=== PATIENT | female | born 1955 | race Caucasian/White ===

== ENCOUNTER → 2024-07-11 14:56 | Outpatient (REF) | payer MEDICARE, SELFPAY | LOC: WDC 14:56 | PROVIDERS: ATTENDING PHYSICIAN Nurse Practitioner Adult Health | DX: Z12.39 Encounter for other screening for malignant neoplasm of breast (principal); Z12.31 Encounter for screening mammogram for malignant neoplasm of breast | CPT/HCPCS: 77063; 77067 ==

== ENCOUNTER 2024-12-13 23:23 | Observation (INO) | payer MEDICARE, SELFPAY ==
[2024-12-13] VITALS (24 sets, daily range): BP systolic 86–116; BP diastolic 47–96; BMI 29.9
[2024-12-13 17:34] LABS: Hematocrit 29.1 % (37.0-47.0); Hemoglobin 9.1 g/dL (12.0-16.0); Mean Corp Hgb Conc. 31.3 g/dL (33.0-37.0); Mean Corpuscular Volume 93.6 fL (81.0-99.0); Nucleated Red Blood Cells % 0 %; Platelet Count 149 10^3/uL (130-400); Red Cell Dist. Width 14.6 % (11.5-14.5)
[2024-12-13 17:52] LABS: ALT (SGPT) 22 U/L (0-35); AST (SGOT) 17 U/L (14-36); Albumin 3.0 g/dl (3.5-5.0); Alkaline Phosphatase 139 U/L (38-126); Blood Urea Nitrogen 25 mg/dl (7-17); Calcium 8.9 mg/dl (8.4-10.2); Carbon Dioxide 22 mmol/L (22-30); Chloride 106 mmol/L (98-107); Estimated Creatinine Clearance 38 ml/min; Glucose 139 mg/dl (70-99); Potassium 4.1 mmol/L (3.5-5.1); Sodium 133 mmol/L (135-145); Total Protein 5.6 g/dl (6.3-8.2); eGFR 37.03
--- NOTE | 2024-12-13 17:58 | ED.GENMED ---
History of Present Illness
General
Chief Complaint: Dehydration Symptoms
Time Seen by Provider: 12/13/24 17:26
History of Present Illness
History of Present Illness:
69-year-old female presents to the emergency department for evaluation of dizziness and near syncope. She states for the past 4 days she has had intermittent fever and chills as well as 'bone pain'. She denies any cough, chest pain, abdominal
pain, vomiting, or diarrhea. No lower urinary tract voiding symptoms. She was seen at [facility] emergency department 3 days ago for the symptoms, reportedly had a negative COVID and flu and was diagnosed with a viral syndrome. She
was discharged home. She was noted to be hypotensive at her primary care physician's office today and had a near syncopal event when trying to stand. She did take her amlodipine, losartan, and metoprolol today, states that she frequently has low
blood pressure episodes at home as low as 80/40 but has not made any medication adjustments recently.
Review of Systems
Review of Systems
Allergies reviewed?: Yes
All Other Systems: ROS reviewed and negative except as documented in HPI and ROS
Phy Exam
Physical Exam
Physical Exam:
GEN: Well appearing, NAD, WDWN
HEENT: Oral mucosa dry, no scleral icterus
Cardiac: Regular rate and rhythm, no murmur
Lung: No respiratory distress, no tachypnea, lungs clear to auscultation bilaterally
Abdomen: Soft, nontender
MSK: No gross deformity or injuries
Skin: Good color, no pallor or jaundice, no rashes
Neuro: AO x3, moves all extremities freely
Psych: Calm, cooperative
Course
Orders/Labs/Results
Orders:
Orders
12/13/24 17:20
ECG [Electrocardiogram (*1)] Urgent
Reason for Study: Vertigo / Dizzy
EKG- Treatment ONCE
12/13/24 17:21
CMP [Comprehensive Metabolic Panel] Urgent
Complete Blood Count/With Diff Urgent
12/13/24 17:57
0.9% Sodium Chloride 1000 ml [Nss] 1,000 ml IV BOLUS
12/13/24 17:58
0.9% Sodium Chloride 1000 ml [Nss] 1,000 ml IV BOLUS
12/13/24 18:42
Urinalysis Reflex To Culture Urgent
Date Specimen was Collected: 12/13/24
Time Specimen was Collected: 18:34
12/13/24 23:24
Admit/Transfer Patient As Directed
Co-Sign Provider:
Level of Care: Observation services
Assign to:: Telemetry
Physician / Group: Tim Glover
Diagnosis: hypotensive, anemia
Reason for Telemetry: Arrhythmia
Date to Stop Telemetry: 12/16/24
Time to Stop Telemetry: 11:00
PRN Pain Medication Management As Directed
May give lesser potent ordered pain med per pt: Yes
preference::
Protocol:: Medication orders for pain may be administered in a
manner that supports deferring to patient preference
when the pt is:
- Requesting an ordered lesser potent pain medication.
Least to most potent pain medications are defined
as: acetaminophen < NSAID < tramadol < opioids
(morphine, oxycodone, hydromorphone).
- Requesting a lesser dose of the same medication IF
ORDERED.
- Requesting a less intrusive route of administration
if both routes are prescribed by the provider (PO <
IV).
12/13/24 23:26
Code Status As Directed
Resuscitation Status: Full Code
12/13/24 23:54
COVID-19 Antigen Urgent
Source: Nasal Swab
12/16/24 11:00
DC Protocol for Telemetry ONCE
Abnormal Lab Results
12/13/24
17:21
RBC 3.11 L 10^6/uL
(4.20-5.40)
Hgb 9.1 L g/dL
(12.0-16.0)
Hct 29.1 L %
(37.0-47.0)
MCHC 31.3 L g/dL
(33.0-37.0)
RDW 14.6 H %
(11.5-14.5)
MPV 12.3 H fL
(7.4-10.4)
Abs Immat Gran (auto) 0.1 H 10^3/uL
(0-0.05)
Absolute Neuts (auto) 8.4 H 10^3/uL
(1.4-6.5)
Absolute Monos (auto) 0.7 H 10^3/uL
(0.1-0.6)
Immature Gran % 0.6 H %
(0-0.5)
Neutrophils % 78.0 H %
(42.2-75.2)
Lymphocytes % 13.3 L %
(20.5-51.1)
Sodium 133 L mmol/L
(135-145)
BUN 25 H mg/dl
(7-17)
Creatinine 1.5 H mg/dL
(0.6-1.0)
Glucose 139 H mg/dl
(70-99)
Alkaline Phosphatase 139 H U/L
(38-126)
Total Protein 5.6 L g/dl
(6.3-8.2)
Albumin 3.0 L g/dl
(3.5-5.0)
12/13/24 17:21
12/13/24 17:21
Vital Signs
Initial and Last Documented VS:
Initial Vital Signs
Temp
97.7 F
12/13/24 17:11
Last Documented Vital Signs
Temp Pulse Resp BP Pulse Ox
98.4 F 65 12 119/65 93
12/14/24 00:07 12/14/24 00:00 12/14/24 00:00 12/14/24 00:00 12/14/24 00:00
MDM/Problems Addressed
MDM/Problems Addressed:
Suspect the cause of the patient's hypotension is multifactorial potentially due to mild hypovolemia coupled with excessive antihypertensive use. Her hemoglobin is noted to be low however this may be hemodilution, compared to 11.3 at [facility]
earlier in the week but the patient is heme-negative stool and no other signs of active bleeding. Her blood pressure was responsive to IV fluid however after 2 L of crystalloid she remained modestly hypotensive. Will admit for observation and
adjustment of blood pressure medications
Comment
Comment:
EKG independently interpreted by me shows normal sinus rhythm at a rate of [address] changes concerning for ischemia
*Pulse Oximetry
SaO2: 96
Oxygen Mode of Delivery: Room air
Patient hypoxic: no
*Critical Care Note
Total Time (30-74mins, 75-104mins- exclusive of procedures): Not Applicable
Update Note
Update Note:
Stool hemoccult negative. Hgb now 9.1, down from 11.3 at [facility] earlier this week.
ED Attending Note
-
Portions of this chart may have been created with voice recognition software.� Occasional wrong word or��sound alike� substitutions may have occurred due to the inherent limitations of voice recognition software.
Discharge Plan
Departure
Patient Disposition: Admit
Date of Disposition: 12/13/24
Time of Disposition: 22:22
Admit to: Med/Surg
Presentation/result/management discussed w/ accepting MD/DO: Hospitalist
Discharge Problem:
Acute hypotension, Near syncope
Prescriptions:
No Action
allopurinol 100 mg Tablet
100 mg PO DAILY
morphine 30 mg Tablet
30 mg PO BID
coenzyme Q10 [Co Q-10] 100 mg Capsule
100 mg PO DAILY
Lactobacillus acidophilus 500 million cell Tablet
500 mmu cells PO PRN PRN (Reason: supplement)
cholecalciferol (vitamin D3) [Vitamin D3] 50 mcg (2,000 unit) Tablet
25 mcg PO DAILY
mecobalamin (vitamin B12) 1,000 mcg Tablet,Disintegrating
1,000 mcg SUBLINGUAL DAILY
Prevagen Supplement
1 cap PO DAILY
oxycodone 15 mg Tablet
15 mg PO Q4H PRN (Reason: shoulder/back pain)
amlodipine 5 mg tablet
2.5 mg PO DAILY
multivitamin [Multi-Vitamin] Tablet
1 tab PO DAILY
furosemide 40 mg Tablet
40 mg PO MOTH
Rx Instructions:
2x per week, patient unsure of days
fluticasone propion-salmeterol [Advair Diskus] 250-50 mcg/dose Blister With Device
1 inh INHALATION BID
acetaminophen 325 mg Tablet
325 mg PO Q4HPRN PRN (Reason: pain/fever )
famotidine 20 mg Tablet
20 mg PO DAILY
albuterol sulfate 90 mcg/actuation Hfa Aerosol Inhaler
2 puff INHALATION Q4HPRN PRN (Reason: SOB/Wheezing)
albuterol sulfate [ProAir HFA] 90 mcg/actuation Hfa Aerosol Inhaler
2 puff INHALATION Q4D
paroxetine HCl 40 mg Tablet
40 mg PO DAILY
ondansetron 4 mg Tablet,Disintegrating
4 mg PO TIDPRN PRN (Reason: nausea/vomiting)
metoprolol tartrate 25 mg Tablet
25 mg PO BID
Referrals:
NONE,* [Active, Internal Medicine]
Interventions
Interventions:
*Risk Screen - Suicide Last Done: 12/13/24 17:11
*General Assessment Last Done: 12/13/24 17:11
*Neglect/Abuse Screening Last Done: 12/13/24 17:19
*ED- Fall Risk Assessment Last Done: 12/13/24 17:19
*ED COVID-19 Vaccine History Last Done: 12/13/24 17:19
ED- Cardiac Assessment Last Done: 12/14/24 00:04
ED- Neurological Assessment Last Done: 12/14/24 00:04
ED- Pulmonary Assessment Last Done: 12/14/24 00:04
Discharge Date and Time
Print Language: HUNGARIAN
[2024-12-13] MEDS: NSS 1000 IV ×2 (18:06)
[2024-12-13 18:56] LABS: Urine Character Clear (Clear)
--- NOTE | 2024-12-13 22:29 | HPS.HSE ---
Addendum entered and electronically signed by Tim Glover DO 12/13/24 23:57:
Patient seen and examined independently. Agree with findings and plan as set forth by HOLA Quach.
Patient is a 69y F with PMH significant for PA-Fib, hypertension and DM-II who presents to ED for evaluation after fall at her PCP office today. Patient was seen at [facility] ED about 3 days ago for fevers / chills, headache and malaise. She
was diagnosed with viral syndrome and discharged. She states that these symptoms have since improved. Patient was seen by her PCP today in follow-up. When leaving the office, patient stood and her legs 'gave out'. She fell to floor. She did not
strike her head and she did not pass out. Her BP was noted to be low at the PCP office and patient was sent to the ED for further evaluation.
At the time of my examination, patient is resting comfortably and has no complaints. She has ambulated to the bathroom and back without lightheadedness, dizziness, etc.
Ass:
Fall
Hypotension
Benign Hypertension
DM-II
Paroxysmal Atrial Fibrillation
CKD III
Plan:
Observe overnight for further evaluation and treatment.
BP improved in the ED after IVF and patient appears asymptomatic at present.
Continue to hold BP medications.
Monitor for continued improvement / stability in BP.
Follow labs / anemia. Check iron studies, etc.
PT eval in the AM.
Original Note:
Family Physician
-
Family Physician: Jackie Burnett
Chief Complaint
-
hypotension
History of Present Illness
Patient is a 69-year-old female with past medical history significant for hypertension, hyperlipidemia, paroxysmal atrial fibrillation, chronic HFpEF and DM - II who presented to [facility] ED for evaluation of hypotension. Patient reports being at
primary care providers office this afternoon for follow up for [facility] ED visit for fever, chills, headache and severe back pain with diagnosis of viral syndrome and discharged home 3 days ago. When she was leaving she reports becoming dizzy and
fell. Patient reports being complaint with medications, she states that her separates them into a weekly container and she takes them daily. She currently denies any dizziness, shortness of breath or nausea.
Medical History
Past Medical History
Past Medical History: Reports Other
Additional Past Medical History:
hypertension
hyperlipidemia
paroxysmal atrial fibrillation
chronic HFpEF
DM - II
gout
iron deficiency anemia
CKD IIIb
STEPHENIE
anxiety/depression
Hx GI bleed
Past Surgical History: Reports Other
Additional Past Surgical History:
Ischemic bowel disease-R hemicolectomy and transverse colon resection
Osteoarthritis-bilateral knee replacements (2011)
spinal fusion
Menorrhagia/Fibroids-Hysterectomy
section(1983)
Bilateral tubal ligation(1988)
hemorrhage-myomectomy
angulated transverse subtrochanteric fracture of the R proximal femur s/p ORIF (2016)- Dr. Devlin
Breast lump-BX Left Breast/benign intraductal papilloma (2005)
Adhesions-exploratory laparotomy (1999)
Back pain-L4/L5 Right Laminectomy (2010)
IR Fistula/abscess of liver 10/28/21
diverticulitis
Social History
Tobacco: Non-smoker
Alcohol: None
Drug: None and Other
Personal:
Living: With Family
Family History
Family History: Not pertinent
Allergies / Home Medications
Allergies reflects when Allergies were last updated in emere.
Home Medications with original date entered in emere
Allergy/Medication List:
Allergies
Allergy/AdvReac Type Severity Reaction Status Date / Time
Cephalosporins Allergy Rash Verified 12/13/24 17:15
penicillin G Allergy Anaphylaxis Verified 12/13/24 17:15
Penicillins Allergy Anaphylaxis Verified 12/13/24 17:15
Home Medications
Lactobacillus acidophilus 500 million cell tablet 500 mmu cells PO PRN PRN supplement 11/02/22
Prevagen Supplement 1 cap PO DAILY 11/02/22
allopurinol 100 mg tablet 100 mg PO DAILY 11/02/22
cholecalciferol (vitamin D3) 50 mcg (2,000 unit) tablet (Vitamin D3) 25 mcg PO DAILY 11/02/22
coenzyme Q10 100 mg capsule (Co Q-10) 100 mg PO DAILY 11/02/22
mecobalamin (vitamin B12) 1,000 mcg disintegrating tablet,sublingual 1,000 mcg sublingual DAILY 11/02/22
morphine 30 mg immediate release tablet 30 mg PO BID 11/02/22
oxycodone 15 mg tablet 15 mg PO Q4H PRN shoulder/back pain 11/16/22
acetaminophen 325 mg tablet 325 mg PO Q4HPRN PRN pain/fever 12/13/24
albuterol sulfate 90 mcg/actuation aerosol inhaler 2 puff inhalation Q4D SOB 12/13/24
albuterol sulfate 90 mcg/actuation aerosol inhaler 2 puff inhalation Q4HPRN PRN SOB/Wheezing 12/13/24
amlodipine 5 mg tablet 2.5 mg PO DAILY 12/13/24
famotidine 20 mg tablet 20 mg PO DAILY 12/13/24
fluticasone 250 mcg-salmeterol 50 mcg/dose blistr powdr for inhalation (Advair Diskus) 1 inh inhalation BID 12/13/24
furosemide 40 mg tablet 40 mg PO MOTH 12/13/24
metoprolol tartrate 25 mg tablet 25 mg PO BID 12/13/24
multivitamin 1 tab PO DAILY 12/13/24
ondansetron 4 mg disintegrating tablet 4 mg PO TIDPRN PRN nausea/vomiting 12/13/24
paroxetine HCl 40 mg tablet 40 mg PO DAILY 12/13/24
Review of Systems
-
History Source: Patient
Constitutional: Reports Fatigue
EENT: Reports No Symptoms
Respiratory: Reports No Symptoms
Cardiac: Reports No Symptoms
Abdomen/GI: Reports No Symptoms
: Reports No Symptoms
Musculoskeletal: Reports No Symptoms
Skin: Reports No Symptoms
Neurological: Reports Dizzy and Other (near syncope )
Endocrine: Reports No Symptoms
Hematologic/Lymphatic: Reports No Symptoms
Psych: Reports No Symptoms
Physical Exam
Vital Signs
Vital Signs
Temp Pulse Resp BP Pulse Ox
97.7 F 63 11 94/47 98
12/13/24 17:11 12/13/24 22:20 12/13/24 22:20 12/13/24 22:20 12/13/24 22:20
Physical Exam
General: Well Developed, Well Nourished, No Apparent Distress, Comfortable, Conversant and Obese
HEENT: NormoCephalic, Moist mucous membranes and Atraumatic
Respiratory: Clear and Non Labored Respirations
Cardiac: S1/S2, Regular Rhythm and Peripheral Edema (BLLE +1 edema in ankles ); No Murmur, Rub or Gallop
Breast: Deferred by me
GI: Soft, Non Tender, Non Distended and Normal Bowel Sounds
Rectal: Deferred by Provider
Genito-urinary: Deferred by me
Musculoskeletal: No Clubbing and No Cyanosis
Skin: Warm and IV/Catheter Site
Neuro: Awake, AO x 3 and Nonfocal/grossly intact
Hematologic/Lymphatic: No Lymphadenopathy
Psych: Calm
Laboratory Results
-
12/13/24 17:21
12/13/24 17:21
Laboratory Results
Total Bilirubin 0.3 mg/dl (0.2-1.3) 12/13/24 17:21
AST 17 U/L (14-36) 12/13/24 17:21
ALT 22 U/L (0-35) 12/13/24 17:21
Alkaline Phosphatase 139 U/L (38-126) H 12/13/24 17:21
Data Reviewed
-
Medical Tests (Nuc Med, Echo, EKG etc): Report Reviewed by me (EKG: NORMAL SINUS RHYTHM)
Lab Data: Labs Reviewed by me (hgb 9.1, hct 29.1, Na+ 133, BUN 25, Creat 1.5, eGFR 37.03)
Impression/Plan
-
IMPRESSION/PLAN:
#hypotension likely 2/2 medication regimen
EKG: NORMAL SINUS RHYTHM
- Admit to telemetry
- orthostatic VS
- hold hypertension medications
- hold PRN oxycodone
#anemia
#iron deficiency anemia
#Hx GI bleed
hgb 9.1, hct 29.1
hemeoccult negative in ED
- monitor H/H
- iron studies
#hypertension
- hold amlodipine, furosemide and metoprolol
#paroxysmal atrial fibrillation
- hold metoprolol in setting of hypotension
#chronic HFpEF
- daily weights
- I & Os
- hold furosemide in setting of hypotension
#gout
- continue allopurinol
#CKD IIIb
Na+ 133, BUN 25, Creat 1.5, eGFR 37.03
- monitor BMP
#anxiety/depression
- continue paroxetine
#DM - II
#hyperlipidemia
#STEPHENIE
Code status: full code
DVT prophylaxis: SCDs
[2024-12-14] VITALS (9 sets, daily range): BP systolic 119–178; BP diastolic 65–99; PULSE 73–104; BMI 30.4
[2024-12-14 00:43] LABS: COVID-19 Antigen Negative (Negative)
[2024-12-14] MEDS: ROXICODONE 10 MG PO ×2 (01:49→06:39)
[2024-12-14] MEDS: LIDOCAINE 4% PATCH 1 PATCH TOPICAL (05:36)
[2024-12-14 06:28] LABS: Hematocrit 29.2 % (37.0-47.0); Hemoglobin 9.1 g/dL (12.0-16.0); Mean Corp Hgb Conc. 31.2 g/dL (33.0-37.0); Mean Corpuscular Volume 93.6 fL (81.0-99.0); Platelet Count 152 10^3/uL (130-400); Red Cell Dist. Width 14.5 % (11.5-14.5)
[2024-12-14 06:44] LABS: Blood Urea Nitrogen 20 mg/dl (7-17); Calcium 8.6 mg/dl (8.4-10.2); Carbon Dioxide 22 mmol/L (22-30); Chloride 110 mmol/L (98-107); Estimated Creatinine Clearance 47 ml/min; Glucose 106 mg/dl (70-99); Iron 33 ug/dl (37-170); Potassium 4.2 mmol/L (3.5-5.1); Sodium 137 mmol/L (135-145); eGFR 48.39
[2024-12-14 06:53] LABS: Total Iron Binding Capacity 209 ug/dl (265-497)
[2024-12-14 07:18] LABS: Ferritin 93.1 ng/ml (11.1-264.0)
[2024-12-14 07:32] LABS: Vitamin B12 > 1000 pg/ml (239-931)
[2024-12-14] MEDS: MS CONTIN (EXTENDED RELEASE) 30 MG PO ×2 (09:11→20:09)
[2024-12-14] MEDS: THERAGRAN 1 TABLET PO (09:11)
[2024-12-14] MEDS: ZYLOPRIM 100 MG PO (09:11)
[2024-12-14] MEDS: VITAMIN D3 (cholecalciferol) 25 MCG PO (09:11)
[2024-12-14] MEDS: PEPCID 20 MG PO (09:12)
[2024-12-14] MEDS: PAXIL 40 MG PO (09:12)
--- NOTE | 2024-12-14 09:23 | W.PN.HOSP.TC ---
Today's Communication/Plan
-
hold BP meds
monitor BP
iron supplement
discussed lowering her oxycondone
possible dc today or tomorrow
Assessment / Plan
Assessment / Plan
69F w/hypertension, hyperlipidemia, paroxysmal atrial fibrillation, chronic HFpEF and DM - II p/w fall, presyncope, foudn to have hypotension.
Presyncope
due to hypotension
recd IVF in ED
hold home BP meds
check orthostatic VS
also on MS contin/oxycodone will d/w pt
iron deficiency anemia
hgb 9.1 and stable
hemeoccult negative in ED
- monitor H/H
- iron studies show low iron/tibc/%sat
iron supplementation
denies bleeding or black stools
Chronic back pain
pt on MS contin 20mg BID
pt says she has been on this for 10 years
also on oxy 15mg prn which she basically takes BID
may have to adjust if contributing to her hypotension
hypertension
- hold amlodipine, furosemide and metoprolol
paroxysmal atrial fibrillation
- hold metoprolol in setting of hypotension
chronic HFpEF
- daily weights
- I & Os
- hold furosemide in setting of hypotension
gout
- continue allopurinol
CKD IIIb
Creat 1.5-->1.2
- monitor BMP
anxiety/depression
- continue paroxetine
DM - II
SSI, AccuCheck, BG controlled.
Code status: full code
DVT prophylaxis: SCDs
Anticipated Discharge: Within 24 hours
Subjective/Interval History
-
Date of Service: December 14, 2024
Pt feeling better able to walk to BR with no dizziness. orthostatic VS this morning was negative
Objective Data
-
Labs:
Laboratory Results
08/22/25
05:23
WBC 10.0
Hgb 9.1 L
Hct 29.2 L
Plt Count 152
Sodium 137
Potassium 4.2
Chloride 110 H
Carbon Dioxide 22
BUN 20 H
Creatinine 1.2 H
Glucose 106 H
Calcium 8.6
Vital Signs:
Vital Signs
Temp Pulse Resp BP Pulse Ox
98.8 F 69 18 119/65 95
12/14/24 03:26 12/14/24 00:45 12/14/24 03:26 12/14/24 00:00 12/14/24 03:26
I&O
12/13/24 12/14/24 12/15/24
06:59 06:59 06:59
Intake Total 120 / 120
Balance 120 / 120
Review of Systems
-
All other systems: Reviewed and negative
Physical Exam
-
General: No Apparent Distress
HEENT: Moist Mucous Membranes, Anicteric and PERRLA
Respiratory: Clear to Auscultation; Negative Wheezes, Rales or Rhonchi
Cardiac: Regular Rhythm and S1/S2; Negative Murmur, Rub or Gallop
GI: Soft, Nontender, Nondistended and Normal Bowel Sounds
Musculoskeletal: No Edema
Skin: Warm and Dry; Negative Rash, Ulcers or Lesions
Neuro: Awake and AO x 3
Hematologic / Lymphatic: No Lymphadenopathy
Psych: Calm
Data Reviewed
-
Labs: Labs Reviewed by me and Discussed with Patient
--- NOTE | 2024-12-14 12:57 | CM ---
CM reviewed chart, patient seen bedside, initial assessment completed. Patient resides with her spouse in a multiple story home, first floor set up, patient reports she cannot go up flight of steps. Patient reports 4-5 steps into the home. Patient
has a walker if needed, keeps cane in car. Patient reports hx [facility] in past, [facility] after three month hospital stay. PCP Jackie Burnett, pharmacy [facility], confirms prescription coverage. Patient denies insecurities at
home. FAUSTIN form verbally reviewed, provided with copy, placed in chart. CM will continue to follow for all discharge planning needs.
Plan; home with family when stable
[2024-12-14] MEDS: ROXICODONE 15 MG PO (13:44)
[2024-12-14] MEDS: TYLENOL 325 MG PO (13:45)
[2024-12-14] MEDS: REMOVE LIDOCAINE PATCH 1 PATCH REMOVE (20:10)
[2024-12-14] MEDS: LOPRESSOR 25 MG PO (20:10)
[2024-12-15 03:49] VITALS: BP 180/106; BP 180/109; BP 187/107; PULSE 79; PULSE 80; PULSE 83
[2024-12-15 04:10] VITALS: BP 180/98
[2024-12-15] MEDS: LOPRESSOR 25 MG PO (04:25)
--- NOTE | 2024-12-15 04:45 | PTCARENOTE ---
12/15 Patients blood pressure at 2339 was 170/94. Rechecked blood pressure manually at 0149 and it was 148/82. Ortho vitals were done at 0349, supine BP 180/106, sitting BP 187/107, and standing BP 180/109. Reached out to HOLA Godinez and received
order to give the 0800 dose of metoprolol now
[2024-12-15 06:00] VITALS: BMI 30.4
[2024-12-15 07:36] VITALS: BP 168/93
[2024-12-15 09:55] VITALS: BP 170/96
[2024-12-15] MEDS: VITAMIN D3 (cholecalciferol) 25 MCG PO (10:17)
[2024-12-15] MEDS: PAXIL 40 MG PO (10:17)
[2024-12-15] MEDS: MS CONTIN (EXTENDED RELEASE) 30 MG PO (10:17)
[2024-12-15] MEDS: THERAGRAN 1 TABLET PO (10:17)
[2024-12-15] MEDS: ZYLOPRIM 100 MG PO (10:17)
[2024-12-15] MEDS: PEPCID 20 MG PO (10:17)
[2024-12-15 10:26] LABS: Hematocrit 34.5 % (37.0-47.0); Hemoglobin 10.8 g/dL (12.0-16.0); Mean Corp Hgb Conc. 31.3 g/dL (33.0-37.0); Mean Corpuscular Volume 92.7 fL (81.0-99.0); Platelet Count 192 10^3/uL (130-400); Red Cell Dist. Width 14.5 % (11.5-14.5)
[2024-12-15] MEDS: NORVASC 2.5 MG PO (10:31)
[2024-12-15 11:03] LABS: Blood Urea Nitrogen 18 mg/dl (7-17); Calcium 9.6 mg/dl (8.4-10.2); Carbon Dioxide 23 mmol/L (22-30); Chloride 108 mmol/L (98-107); Estimated Creatinine Clearance 63 ml/min; Glucose 154 mg/dl (70-99); Potassium 4.5 mmol/L (3.5-5.1); Sodium 140 mmol/L (135-145); eGFR > 60.00
[2024-12-15 11:20] VITALS: BP 167/108
--- NOTE | 2024-12-15 11:30 | W.DCSUMMARY ---
Discharge Summary
Discharge Data
Date of Admission: 12/13/24
Date of Discharge: 12/15/24
Total time spent discharging patient (in min): 35
-
Pending Results: No
Hospital Course
Attending physician on day of discharge:
Shahla Farris MD
Admission diagnosis:
presyncope, hypotension
Discharge diagnosis:
Presyncope
Secondary diagnoses:
Hypertension
Anemia
Chronic back pain
Chronic opioid dependency
Paroxysmal atrial fibrillation
Chronic heart failure with preserved ejection fraction
CKD
Anxiety depression
Consultations:
None
Procedures:
None
Hospital course:
69F presented with presyncope, fall at PCPs office, found to have low blood pressure, sent to ED. Fluids in the ED, after that negative orthostatic VS, BP meds were held, BP then went high meds were restarted with no adverse events. Patient was
advised to stop taking oxycodone 15 mg as needed and only take 5 mg as needed as this could lead to presyncope. Event may have been due to dehydration as she improved after fluids.
Physical exam on discharge:
Gen: NAD
HEENT: PERRLA, EOMI, MMM, neck supple
Cards: RRR, no M/G/R
Resp: Lungs CTAB, no W/R/R
GI: soft, NT/ND/NABS
MSK: No edema
Skin: warm and dry, no rash, ulcer or lesions
Heme: No LAD
Psych: Calm
Neuro: AAOx3
Discharge disposition:
Home
Discharge Plan
-
Referrals:
Jackie Burnett CRNP [Family Provider, General]
Prescriptions:
No Action
allopurinol 100 mg Tablet
100 mg PO DAILY
morphine 30 mg Tablet
30 mg PO BID
coenzyme Q10 [Co Q-10] 100 mg Capsule
100 mg PO DAILY
Lactobacillus acidophilus 500 million cell Tablet
500 mmu cells PO PRN PRN (Reason: supplement)
cholecalciferol (vitamin D3) [Vitamin D3] 50 mcg (2,000 unit) Tablet
25 mcg PO DAILY
mecobalamin (vitamin B12) 1,000 mcg Tablet,Disintegrating
1,000 mcg SUBLINGUAL DAILY
Prevagen Supplement
1 cap PO DAILY
oxycodone 15 mg Tablet
15 mg PO Q4H PRN (Reason: shoulder/back pain)
amlodipine 5 mg tablet
2.5 mg PO DAILY
multivitamin [Multi-Vitamin] Tablet
1 tab PO DAILY
furosemide 40 mg Tablet
40 mg PO MOTH
Rx Instructions:
2x per week, patient unsure of days
fluticasone propion-salmeterol [Advair Diskus] 250-50 mcg/dose Blister With Device
1 inh INHALATION BID
acetaminophen 325 mg Tablet
325 mg PO Q4HPRN PRN (Reason: pain/fever )
famotidine 20 mg Tablet
20 mg PO DAILY
albuterol sulfate 90 mcg/actuation Hfa Aerosol Inhaler
2 puff INHALATION Q4HPRN PRN (Reason: SOB/Wheezing)
albuterol sulfate [ProAir HFA] 90 mcg/actuation Hfa Aerosol Inhaler
2 puff INHALATION Q4D
paroxetine HCl 40 mg Tablet
40 mg PO DAILY
ondansetron 4 mg Tablet,Disintegrating
4 mg PO TIDPRN PRN (Reason: nausea/vomiting)
metoprolol tartrate 25 mg Tablet
25 mg PO BID
Discharge Date and Time
Print Language: ICELANDIC
[2024-12-15] MEDS: APRESOLINE 10 MG IV (13:09)
[2024-12-15 13:27] VITALS: BP 148/78
--- NOTE | 2024-12-15 13:38 | CM ---
Patient has been medically cleared for discharge to home with no additional skilled services. Remained on OBS status. No IMM warranted. Patient arranged for transport home.
== END 2024-12-15 13:35 | disposition home or self-care (01) ==
LOC: 4 WEST ACU 23:23
PROVIDERS: Emergency Medicine; Nurse Practitioner Family; Physician Assistant; ADMITTING PHYSICIAN Hospitalist; ATTENDING PHYSICIAN Internal Medicine; EMERGENCY PHYSICIAN Emergency Medicine; FAMILY PHYSICIAN Nurse Practitioner Adult Health
DX: I95.9 Hypotension, unspecified (principal); D50.9 Iron deficiency anemia, unspecified; I13.0 Hypertensive heart and chronic kidney disease with heart failure and stage 1 through stage 4 chronic kidney disease, or unspecified chronic kidney disease; G89.29 Other chronic pain; M54.9 Dorsalgia, unspecified; F11.20 Opioid dependence, uncomplicated; I48.0 Paroxysmal atrial fibrillation; N18.32 Chronic kidney disease, stage 3b; I50.32 Chronic diastolic (congestive) heart failure; F41.9 Anxiety disorder, unspecified; F32.A Depression, unspecified; E11.22 Type 2 diabetes mellitus with diabetic chronic kidney disease; Z11.52 Encounter for screening for COVID-19; M10.9 Gout, unspecified
CPT/HCPCS: 80048; 80053; 81003; 82607; 82728; 83540; 83550; 85025; 85027; 87811; 93005; 96360; 99285; G0378